=== PATIENT | female | born 1975 | race Hispanic/Latino ===

== ENCOUNTER 2024-01-12 10:26 | Emergency (ER) | payer OTHER, SELFPAY ==
[2024-01-12] MEDS ORDERED: Acetaminophen 500 MG TAB ONE (10:42)
[2024-01-12] MEDS ORDERED: Ketorolac Tromethamine 30 MG (1 mL) VIAL ONE (11:00)
[2024-01-12] MEDS ORDERED: SUMAtriptan Succinate 6 MG/0.5 ML VIAL ONE (11:01)
[2024-01-12] MEDS ORDERED: Metoclopramide HCl 10 MG (2 mL) VIAL ONE (11:01)
[2024-01-12] MEDS ORDERED: Tetracaine 0.5% PF 4 ML BOT ONE (11:01)
[2024-01-12 11:07] LABS: #Basophils 0.1 thou/uL (0.0-0.2); #Eosinphils 0.3 thou/uL (0.0-0.7); #Lymphocytes 1.4 thou/uL (1.20-3.40); #Monocytes 0.6 thou/uL (0.11-0.59); %Basophils 0.8 % (0.0-1.0); %Lymphocytes 22.4 % (21.0-51.0); %Monocytes 9.3 % (0.0-10.0); %Neutrophils 63.4 % (42.0-75.0); Hematocrit 38.1 % (36.0-47.0); Hemoglobin 13.2 g/dL (12.0-16.0); Mean Corpuscular HGB CONC 34.7 g/dL (32.0-36.0); Mean Corpuscular Volume 86.7 fl (78.0-98.0); Mean Platelet Volume 7.3 fL (7.4-10.4); Platelet Count 222 10x3/uL (130-400); RBC Distribution Width 11.5 % (11.5-14.5); Red Blood Cell (RBC) Count 4.39 mill/uL (4.20-5.40); White Blood Cell (WBC) Count 6.3 10x3/uL (4.8-10.8)
[2024-01-12 11:21] LABS: ALT (SGPT) 108 U/L (8-55); AST (SGOT) 31 U/L (5-34); Albumin 3.4 g/dL (3.5-5.0); Alkaline Phosphatase 80 U/L (40-110); BUN (Urea Nitrogen) 11 mg/dL (7.0-18.7); Bilirubin, Total 0.5 mg/dL (0.2-1.2); Calc. Creatinine Clearance 0 mL/min (70-130); Calcium 7.4 mg/dL (7.8-10.44); Carbon Dioxide 21 mmol/L (22-29); Estimated GFR 108; Glucose 104 mg/dL (70-105); Protein, Total 6.4 g/dL (6.0-8.3)
[2024-01-12 11:22] LABS: Troponin I 0.013 ng/mL (< 0.028)
[2024-01-12 11:35] LABS: Chloride 105 mmol/L (98-107); Potassium 4.2 mmol/L (3.5-5.1); Sodium 140 mmol/L (136-145)
[2024-01-12 11:36] LABS: Anion Gap 17 mmol/L (10-20)
== END 2024-01-12 12:44 | disposition home or self-care (01) ==
LOC: BURERS 10:26
DX: J01.40 Acute pansinusitis, unspecified (principal); B97.89 Other viral agents as the cause of diseases classified elsewhere; Z75.8 Other problems related to medical facilities and other health care
CPT/HCPCS: 70450; 80053; 84484; 85025; 96372; 96374; 96375; J1885; J2765; J3030